=== PATIENT | female | born 1990 ===

== ENCOUNTER → 2020-07-14 15:04 | Outpatient (CLI) | payer OTHER, SELFPAY ==
[2020-07-15 20:04] LABS: COVID19 Sendout Not Detected (Not Detect)
== END ==
PROVIDERS: Visit Provider Physician Assistant
DX: Z11.59 Encounter for screening for other viral diseases (principal)
CPT/HCPCS: 87635

== ENCOUNTER 2020-07-17 10:14 | Day surgery (SDC) | payer OTHER, SELFPAY ==
[2020-07-16 15:10] VITALS: BMI 43.7
[2020-07-17] VITALS (11 sets, daily range): BP systolic 102–126; BP diastolic 62–79; PULSE 70–83; RESP 11–16; TEMP 36.3–36.8; O2SAT 94–97; BMI 43.7
[2020-07-17] MEDS: LACTATED RINGERS 1,000 ML 42 ML IV (11:17)
--- NOTE | 2020-07-17 12:03 | PM.PREOP ---
Pre-operative Note COVID-19 COVID-19 status: Negative Result date/Date tested (Pos, Neg/Pending): 07/16/20 Interval Note History & Physical reviewed/Exam performed by Physician: Yes Changes to H&P: No
--- NOTE | 2020-07-17 12:03 | PM.OP.1 ---
Operative Date/Time/Diagnoses Date of procedure: 07/17/20 Time of procedure: 12:04 Pre-op diagnosis: Left hallux abductovalgus with bunion, flexible foot, pain Post-op diagnosis: same Procedure & Clinicians Procedure: Left bunionectomy with first metatarsocuneiform arthrodesis Same procedure as scheduled: Yes Indications: Painful bunion and flexible left foot. Conservative measures failed to alleviate her pain and she wished to have surgical intervention at this time. Surgeon: Johnna Jones Click Yes if Unassisted: Yes Anesthesia Type: General Operative Notes Closure Type: primary Specimen(s): none sent Applied: implant(s) ([place] plate, 4.0 cannulated screw, 2.7 locking and non-locking screws x4) Estimated Blood Loss (mL): 30 Blood products transfused: none Tourniquet time (min): 69 Procedure in detail: The patient was brought to the operating room and placed on the operating table in the supine position. The tourniquet was placed about the left thigh. Well padded, appropriately aligned. After induction of general anesthesia the foot and ankle were prepped and draped in the usual aseptic manner. The tourniquet was inflated. Incision was made over the left 1st metatarsal cuneiform joint extending to the 1st metatarsophalangeal joint. The incision was deepened through subcutaneous tissues being careful to identify and retract all vital neurovascular structures. All bleeders were cauterized and ligated as necessary. A capsulotomy was performed to the 1st MTPJ exposing the enlarged medial eminence. The saw was used to resect the medial eminence. A rasp was used to reduce the sharp edges of the bone. Attention was then directed to the 1st metatarsocuneiform joint which was entered. The joint was taken down and a saw was used to resect the base of the 1st metatarsal and the distal leading edge of the medial cuneiform. This was done at a slight angle on the medial cuneiform to allow for closure of the intermetatarsal angle. Alignment was good. A k-wire was used to fenestrate either side of the former MC joint. The area was irrigated with copious amounts of normal sterile saline. With the aid of C-arm the guidewire was placed for temporary fixation through the 1st metatarsocuneiform joint. Next the plate was trialed and a lag screw was placed from distal to proximal. The fusion site showed good compression and closure. The tourniquet was deflated during this time as it appeared it was no longer functionally providing it's support. The plate was then attached with the corresponding screws in the normal AO technique. This was reviewed on C-arm and noted to be strong and in appropriate alignment. Once this was loaded it would appear that there did not need to be a distal metatarsal osteotomy or phalangeal osteotomy and instead capsule balancing techniques with the soft tissue were appropriate. Once again after irrigation the medial 1st MTP capsule was resected and closed down and alignment with Vicryl. Vascular status intact to the foot. Deep and subcutaneous closure was closed performed with Vicryl and nylon to the skin. The foot was dressed with a lightly compressive sterile dressing and splint in alignment. She was then placed in a postoperative boot and transferred to PACU with vital signs stable. Complications: none Post-operative Condition: stable Disposition: PACU Plan for aftercare: Following a period of postoperative monitoring the patient will be discharged to home on written and oral postoperative instructions including keeping the dressing dry and intact, non-weightbearing to the foot, icing and elevating the foot when seated at home. DVT prevention techniques have been reviewed. For the 1st postoperative visit the dressing will be changed and close to the 4th postoperative week we will likely have first plain film x-rays.
[2020-07-17] MEDS: CLINDAMYCIN 600 MG/50 ML PIGGYBACK 50 MG IV (12:40)
--- NOTE | 2020-07-17 13:18 | SUR.OPER ---
Supine on padded OR bed, head on pillow, arms secured on padded arm boards at <90 degrees abduction, legs uncrossed, safety belt at abdomen, tape over blanket right lower leg, left leg prepped and draped in sterile field, bump under left hip.
[2020-07-17] MEDS: BUPIVACAINE 0.5% (PF) VIAL 30 ML INJ (13:26)
--- NOTE | 2020-07-17 13:32 | SUR.OPER ---
Supine on padded OR bed, head on pillow, arms secured on padded arm boards at <90 degrees abduction, legs uncrossed, safety belt at thigh, right leg scd activated.
[2020-07-17] MEDS: OXYCODONE/ACETAMINOPHEN 5/325 TABLET 1 TAB PO (15:26)
--- NOTE | 2020-07-17 15:26 | SUR.PHASEI ---
Awake/drowsy, c/o pain 12/16. HOB elevated, water and pudding given in prep for PO Rx
[2020-07-17] MEDS: ONDANSETRON 4 MG/2 ML INJ IV (15:36)
--- NOTE | 2020-07-17 15:42 | SUR.PHASEI ---
1536 c/o nausea, Rx and quese-ease given. pt currently dozing.
--- NOTE | 2020-07-17 15:45 | SUR.PHASEI ---
aroused briefly, stated that nausea is gone and returned to sleep.
--- NOTE | 2020-07-17 16:01 | SUR.PHASEI ---
1557 to Phase II, pt drowsy, oriented and appropriate. Report given. Pain and nausea remain improved. Resp unlabored, skin warm and dry.
--- NOTE | 2020-07-17 16:04 | SUR.PHASEII ---
Call light within reach. Po intake provided.
== END 2020-07-17 16:35 | disposition home or self-care (01) ==
PROVIDERS: Admitting Provider Anesthesiology; PCP Family Medicine; Referring Provider Podiatrist; Visit Provider Podiatrist
PROC: (CPT 28297; principal; 2020-07-17 11:45)
PROC: (CPT 28297; 2020-07-17 11:45)
DX: M20.12 Hallux valgus (acquired), left foot (principal); M21.42 Flat foot [pes planus] (acquired), left foot; E66.9 Obesity, unspecified; Z68.41 Body mass index [BMI] 40.0-44.9, adult; F41.9 Anxiety disorder, unspecified; F17.210 Nicotine dependence, cigarettes, uncomplicated
CPT/HCPCS: 28297; J2250; J2405; J3010